=== PATIENT | female | born 1955 | race African-American/Black ===

== ENCOUNTER 2022-12-12 18:09 | Emergency (ER) | payer MEDICAID, MEDICARE ==
[~2022-12-12] VITALS: Ht 170.2 cm; Wt 45.3 kg
[2022-12-12 18:18] VITALS: TEMP 98.5
[2022-12-12] MEDS ORDERED: ALBUTEROL (0.083%) 2.5MG/3ML NEB HHN STA ×2 (18:34→21:45)
[2022-12-12] MEDS ORDERED: IPRATROPIUM BROMIDE (0.02%) 0.5MG/2.5ML NEB HHN STA ×2 (18:34→21:45)
[2022-12-12 19:31] LABS: BASOPHILS % 0.6 % (0.0-2.0); EOSINOPHILS % 2.7 % (0.0-5.0); HEMATOCRIT. 40.3 % (36.0-48.0); HEMOGLOBIN. 13.2 g/dL (12.0-16.0); LYMPHOCYTES % 15.5 % (20.0-50.0); MEAN CORPUSCULAR HEMOGLOBIN 27.3 pg (28.0-32.0); MEAN CORPUSCULAR HGB CONC 32.8 g/dL (31.0-37.0); MEAN PLATELET VOLUME 8.4 fl (7.4-10.4); MONOCYTES % 4.6 % (2.0-8.0); NEUTROPHILS % 76.6 % (40.0-76.0); PLATELET 335 x1000/uL (130-400); RED BLOOD CELL COUNT 4.85 mill/uL (4.2-5.4); WHITE BLOOD COUNT 8.8 x1000/uL (4.5-11.0)
[2022-12-12 19:39] LABS: CHLORIDE 107 mEq/L (98-107); INDEX HEMOLYSI 1 (1-3); INDEX ICTERIC 1 (1-4); INDEX LIPEMIC 1 (1-3); POTASSIUM 4.3 mEq/L (3.5-5.1); SODIUM 139 mEq/L (136-145)
[2022-12-12 19:41] LABS: D-DIMER 0.89 mg/L FEU (<0.50); PROTHROMBIN TIME 10.5 sec (9.6-11.0)
[2022-12-12 19:47] VITALS: PULSE 110; RESP 20; O2SAT 96
[2022-12-12 20:06] LABS: NT PRO B-TYPE NATRIURETIC PEP 167 pg/mL (5-125)
[2022-12-12 21:02] LABS: ALANINE AMINOTRANSFERASE 27 IU/L (13-61); ALBUMIN 3.9 g/dL (3.4-5.0); ASPARTATE AMINOTRANSFERASE 27 IU/L (15-37); BILIRUBIN TOTAL 0.5 mg/dL (0.1-1.0); CALCIUM 8.9 mg/dL (8.5-10.1); CARBON DIOXIDE 24 mEq/L (21-32); CREATININE 1.2 mg/dL (0.6-1.3); GLUCOSE 98 mg/dL (70-105); PROTEIN TOTAL 9.1 g/dL (6.0-8.3); TROPONIN I HIGH SENSITIVITY 6 ng/L (<54); UREA NITROGEN BLOOD 23 mg/dL (7-21)
[2022-12-12] MEDS ORDERED: P50 MT (21:10)
[2022-12-12] MEDS ORDERED: PREDNISONE 20MG TABLET PO ONE (21:15)
[2022-12-12 21:49] LABS: TROPONIN I HIGH SENSITIVITY 6 ng/L (<54)
[2022-12-12 23:07] VITALS: BP 114/98; PULSE 105; RESP 24
== END 2022-12-12 23:13 | disposition home or self-care (01) ==
LOC: ER 18:09
DX: J44.1 Chronic obstructive pulmonary disease with (acute) exacerbation (principal); M19.90 Unspecified osteoarthritis, unspecified site; F12.90 Cannabis use, unspecified, uncomplicated; Z90.89 Acquired absence of other organs
CPT/HCPCS: 80053; 83880; 85025; 85379; 85610; 84484; 36415; 71045; 94640; 93005; 99285; J7512; Z7610 ×5